=== PATIENT | male | born 1975 | race Caucasian/White ===

== ENCOUNTER 2017-10-12 11:00 | Emergency (ER) | payer SELFPAY ==
[2017-10-12 11:47] VITALS: BP 128/77
--- NOTE | 2017-10-12 11:58 | UC ---
Knee Pain HPI - HPI Summary HPI Summary: 42M presents with left knee pain today. He was walking and slipped and twisted his knee and caught it near a liu at work. He fell on the lateral aspect of his knee. He states that he feels pain greatest over his patella. He denies any numbness or tingling. He denies felling unsteady on his feet. He is able to ambulate but it makes the pain worst. He denies any previous injury to the area. He took some Tylenol prior to arrival. - History of Current Complaint Chief Complaint: UCLowerExtremity Stated Complaint: LEFT KNEE INJURY W/C Time Seen by Provider: 10/12/17 11:47 Pain Intensity: 7 - Allergies/Home Medications Allergies/Adverse Reactions: Allergies Allergy/AdvReac Type Severity Reaction Status Date / Time No Known Allergies Allergy Verified 10/12/17 11:41 Home Medications: Home Medications NK [No Home Medications Reported] 10/12/17 [History Confirmed 10/12/17] PMH/Surg Hx/FS Hx/Imm Hx Endocrine History: Other Other Endocrine History: no DM Respiratory History: Other Other Respiratory History: no asthma - Surgical History Surgical History: None - Family History Known Family History: Positive: Hypertension - Social History Alcohol Use: Occasionally Substance Use Type: None Smoking Status (MU): Current Every Day Smoker Type: Cigarettes Amount Used/How Often: 1 PPD Review of Systems Constitutional: Negative Musculoskeletal: Arthralgia - left knee pain All Other Systems Reviewed And Are Negative: Yes Physical Exam Triage Information Reviewed: Yes Appearance: Well-Appearing Vital Signs: Initial Vital Signs Temp 97.8 F 10/12/17 11:42 Pulse 58 10/12/17 11:42 Resp 16 10/12/17 11:42 BP 128/77 10/12/17 11:42 Pulse Ox 99 10/12/17 11:42 Vital Signs Reviewed: Yes Eye Exam: Normal Respiratory: Positive: Lungs clear, Normal breath sounds Cardiovascular: Positive: RRR Musculoskeletal: Positive: Strength Intact - left knee with pain, ROM Intact - left knee with pain, Other: - pos ballotment, neg anterior drawer or rajinder Neurological Exam: Normal Psychological Exam: Normal Skin Exam: Normal Knee Pain Course/Dx - Course Course Of Treatment: 42M presents with left knee pain today. He was walking and slipped and twisted his knee and caught it near a liu at work. He fell on the lateral aspect of his knee. He states that he feels pain greatest over his patella. He denies any numbness or tingling. He denies felling unsteady on his feet. He is able to ambulate but it makes the pain worst. He denies any previous injury to the area. He took some Tylenol prior to arrival. on exam tenderness over patella left knee. pos ballotment, neg anterior drawer and rajinder. patient states that feels that patella may be sliding laterally so will give knee immbolizer and if no improvement follow up with ortho. will have follow up with primary and follow rice. patient understand and agrees with plan. - Differential Dx/Diagnosis Differential Diagnosis/HQI/PQRI: Contusion, Fracture (Closed), Sprain, Strain Provider Diagnoses: left knee pain Discharge - Discharge Plan Condition: Good Disposition: HOME Patient Education Materials: Knee Pain (ED) Referrals: Non Staff,Doctor [Primary Care Provider] - Boyd Briggs MD [Medical Doctor] - Additional Instructions: Take Tylenol or ibuprofen every 6 hours as needed for pain Apply ice, rest, elevate Follow up with primary care physician within 5 days or if no improvement in 7 days follow up with ortho Return to ED if develop any new or worsening symptoms
--- NOTE | 2017-10-12 12:18 | RAD ---
INDICATION: Left knee injury. TECHNIQUE: 4 views of the left knee were obtained. FINDINGS: There is soft tissue swelling inferior to the patella. The bones are normal alignment. No joint effusion or fracture is seen. Joint spaces appear maintained. IMPRESSION: SOFT TISSUE SWELLING, NO FRACTURE IS SEEN.
== END 2017-10-12 12:43 | disposition home or self-care (01) ==
LOC: UCCORT 11:00
DX: M25.562 Pain in left knee (principal); W01.0XXA Fall on same level from slipping, tripping and stumbling without subsequent striking against object, initial encounter; Y92.9 Unspecified place or not applicable
CPT/HCPCS: 99202; G0463

== ENCOUNTER 2018-06-04 11:23 | Emergency (ER) | payer OTHER ==
--- NOTE | 2018-06-04 11:46 | ED ---
Lower Extremity - HPI Summary HPI Summary: This patient is a 43 year old M presenting to [facility] with a chief complaint of R ankle pain after falling off a walk board in a stairwell roughly 15th off the ground. onto right ankle prior to arrival. Patient has no other complaints at this time. Denies chest pain and abdominal pain. R ankle pain is rated 10/10 in severity. - History of Current Complaint Chief Complaint: EDTraumaMultiple Stated Complaint: RT ANKLE INJURY Time Seen by Provider: 06/04/18 11:30 Hx Obtained From: Patient Mechanism Of Injury: Fall From Height Of: - 15th Onset of Pain: Immediate Severity Initially: Severe Severity Currently: Severe Pain Intensity: 10 Pain Scale Used: 0-10 Numeric Timing: Constant Location: Is Discrete @ - r ankle Related History: Occupational Injury - Allergies/Home Medications Allergies/Adverse Reactions: Allergies Allergy/AdvReac Type Severity Reaction Status Date / Time No Known Allergies Allergy Verified 11/23/17 12:26 PMH/Surg Hx/FS Hx/Imm Hx Endocrine/Hematology History: Denies: Hx Diabetes Cardiovascular History: Denies: Hx Hypertension, Hx Pacemaker/ICD History: Denies: Hx Renal Disease Sensory History: Denies: Hx Hearing Aid Psychiatric History: Denies: Hx Panic Disorder - Surgical History Surgery Procedure, Year, and Place: Lt ANKLE - BONE SPUR Infectious Disease History: No Infectious Disease History: Denies: Traveled Outside the [place] in Last 30 Days - Family History Known Family History: Positive: Hypertension - Social History Alcohol Use: Occasionally Substance Use Type: Reports: None Smoking Status (MU): Current Every Day Smoker Type: Cigarettes Amount Used/How Often: 1 PPD Review of Systems Negative: Chest Pain Negative: Abdominal Pain Positive: Myalgia - R ankle All Other Systems Reviewed And Are Negative: Yes Physical Exam - Summary Physical Exam Summary: Appearance: The patient is well-nourished in no acute distress and in no acute pain. Skin: The skin is warm and dry and skin color reflects adequate perfusion. HEENT: The head is normocephalic and atraumatic. The pupils are equal and reactive. The conjunctivae are clear and without drainage. Nares are patent and without drainage. Mouth reveals moist mucous membranes and the throat is without erythema and exudate. The external ears are intact. The ear canals are patent and without drainage. The tympanic membranes are intact. Neck: The neck is supple with full range of motion and non-tender. There are no carotid bruits. There is no neck vein distension. Respiratory: Chest is non-tender. Lungs are clear to auscultation and breath sounds are symmetrical and equal. Cardiovascular: Heart is regular rate and rhythm. There is no murmur or rub auscultated. There is no peripheral edema and pulses are symmetrical and equal. Abdomen: The abdomen is soft and non-tender. There are normal bowel sounds heard in all four quadrants and there is no organomegaly palpated. Musculoskeletal: There is no back tenderness noted. Extremities are non-tender with full range of motion, except Right heel and ankle are swollen and tender There are good dorsalis pedis and posterior tibial pulses of the right foot There is good capillary refill. There is no peripheral edema or calf tenderness elicited. Neurological: Patient is alert and oriented to person, place and time. The patient has symmetrical motor strength in all four extremities. Cranial nerves are grossly intact. Deep tendon reflexes are symmetrical and equal in all four extremities. Psychiatric: The patient has an appropriate affect and does not exhibit any anxiety or depression. Triage Information Reviewed: Yes Vital Signs On Initial Exam: Initial Vitals Temp Pulse Resp BP Pulse Ox 98.2 F 74 18 128/76 98 06/04/18 11:24 06/04/18 11:24 06/04/18 11:24 06/04/18 11:24 06/04/18 11:24 Vital Signs Reviewed: Yes Diagnostics - Vital Signs Vital Signs Temp Pulse Resp BP Pulse Ox 06/04/18 11:24 98.2 F 74 18 128/76 98 - Laboratory Lab Statement: Any lab studies that have been ordered have been reviewed, and results considered in the medical decision making process. - Radiology R Ankle XR Radiology Interpretation Completed By: Radiologist - Degenerative changes of the tibial talar joint. No definite fracture is noted. ED physician has reviewed this report. - CT RLE CT CT Interpretation Completed By: Radiologist - 1. SEVERELY COMMINUTED, DISPLACED , INTRA-ARTICULAR FRACTURE INVOLVING THE ANTERIOR AND MIDPORTION OF THE CALCANEUS WITH LOSS OF HEIGHT OF THE CALCANEUS. 2. NONDISPLACED FRACTURE OF THE DISTAL FIBULA. 3. CHRONIC OSTEOCHONDRAL LESION MEDIAL ARTICULAR SURFACE OF THE TALUS. 4. MODERATE OSTEOARTHRITIC CHANGE IN THE TALOCRURAL JOINT. ED Physician has reviewed this Lower Extremity Course/Dx - Course Course Of Treatment: Mr. Anthony had a long fall possibly up to 15 feet landing on his feet and then falling onto his right side. He comes in complaining only of pain in his right ankle and specifically denying low back pain or neck pain. His exam was unremarkable except for very tender right foot and ankle which gradually swelled during his stay here. Plain film showed a calcaneal fracture that looked pretty bad and Dr. Mcdaniel for was contacted for orthopedics. He recommended a big bulky dressing and crutches and close follow-up in the office this week. He requested a CT be obtained prior to discharge. - Diagnoses Provider Diagnoses: Right calcaneal fracture - Physician Notifications Discussed Care Of Patient With: Sidney Mcdaniel - orthopedist Time Discussed With Above Provider: 12:35 Instructed by Provider To: Other - will order CT of foot and see on outpatient basis Discharge - Sign-Out/Discharge Documenting (check all that apply): Patient Departure - discharged - Discharge Plan Condition: Stable Disposition: HOME Prescriptions: oxyCODONE/Acetamin 5/325 MG* [Percocet 5/325 TAB*] 1 tab PO Q6H PRN #20 tab MDD 4 PRN Reason: Pain Patient Education Materials: Calcaneal Fracture (ED) Referrals: [facility] [place] PHYSICIAN REFERRAL [Outside] Sidney Mcdaniel MD [Medical Doctor] - 1 Week (Follow up with orthopedics this week. ) Additional Instructions: RETURN TO THE EMERGENCY DEPARTMENT FOR CHANGING OR WORSENING SYMPTOMS. - Billing Disposition and Condition Condition: STABLE Disposition: Home - Attestation Statements Document Initiated by Scribe: Yes Documenting Scribe: Vane Pope Provider For Whom Timmye is Documenting (Include Credential): Doc Thakkar MD Scribe Attestation: Vane Pacheco, scribed for Doc Thakkar MD on 06/04/18 at 1634. Scribe Documentation Reviewed: Yes Provider Attestation: The documentation as recorded by the scribeVane accurately reflects the service I personally performed and the decisions made by me, Doc Thakkar MD
[2018-06-04] MEDS ORDERED: Ibuprofen TAB* 600 MG PO ONE (11:49)
--- NOTE | 2018-06-04 11:55 | RAD ---
Indication: Right ankle injury. 3 views of the right ankle are reviewed. No definite fracture is noted although there are degenerative changes of the tibial talar joint. IMPRESSION: Degenerative changes of the tibial talar joint. No definite fracture is noted.
--- NOTE | 2018-06-04 13:42 | RAD ---
INDICATION: Trauma. COMPARISON: Comparison is made with a prior x-ray study of the right ankle from June 04, 2018. TECHNIQUE: Contiguous axial sections were obtained of the right ankle. Images were reconstructed in the sagittal and coronal planes. FINDINGS: There is lateral soft tissue swelling. There is a severely comminuted fracture present in the anterior and midportion of the calcaneus. There is impaction and displacement of fracture fragments and loss of height in the anterior midportion of the calcaneus. Several fracture components extend to the subtalar joint and also to the calcaneal cuboid joint. There is a nondisplaced fracture involving the inferior lateral tip of the fibula There is a bony ossicle or chronic fracture fragment adjacent to the posterior talus. There is a prominent chronic osteochondral lesion present along the medial superior articular surface of the talus measuring 1.3 x 0.6 cm in size with depression of the articular surface of the talus and prominent subchondral cystic change. There is moderate osteoarthritic change in the talocrural joint. IMPRESSION: 1. SEVERELY COMMINUTED, DISPLACED, INTRA-ARTICULAR FRACTURE INVOLVING THE ANTERIOR AND MIDPORTION OF THE CALCANEUS WITH LOSS OF HEIGHT OF THE CALCANEUS. 2. NONDISPLACED FRACTURE OF THE DISTAL FIBULA. 3. CHRONIC OSTEOCHONDRAL LESION MEDIAL ARTICULAR SURFACE OF THE TALUS. 4. MODERATE OSTEOARTHRITIC CHANGE IN THE TALOCRURAL JOINT.
[2018-06-04] MEDS ORDERED: oxyCODONE/Acetamin 5/325 MG* TAB PO ONE (15:05)
[2018-06-04] MEDS ORDERED: oxyCODONE/Acetamin 5/325 MG* TAB ONE (15:07)
[2018-06-04 15:13] VITALS: BP 139/73
== END 2018-06-04 15:12 | disposition home or self-care (01) ==
LOC: ED 11:23
DX: S92.001A Unspecified fracture of right calcaneus, initial encounter for closed fracture (principal); S82.831A Other fracture of upper and lower end of right fibula, initial encounter for closed fracture; W17.89XA Other fall from one level to another, initial encounter; Y92.9 Unspecified place or not applicable; M89.9 Disorder of bone, unspecified; M19.071 Primary osteoarthritis, right ankle and foot; F17.210 Nicotine dependence, cigarettes, uncomplicated
CPT/HCPCS: 99282; A9270-GY

== ENCOUNTER → 2018-06-13 08:35 | Day surgery (SDC) | payer OTHER ==
[~2018-06-13 08:35] MED LIST: Buffered Lidocaine 0.9% SYRIN* 5 ML/SYR SYRINGE INTRADERM ONE; Bupivacaine 0.25% SDV* 30 ML ONE; Bupivacaine 0.5% SDV PF* 30ML VIAL ONE; Dexamethasone IV* 4 MG/ML 1 ML (4 MG) IV SLOW PU ONE; Dexamethasone IV* 4 MG/ML 1 ML (4 MG) ONE; Famotidine IV* 10 MG/ML 2 ML (20 mg) IV ONE; Famotidine IV* 10 MG/ML 2 ML (20 mg) ONE; ceFAZolin 2 GM in NS PREMIX(*) 2 GM/100 ML BAG IVPB ONE
[2018-06-13 09:25] VITALS: BP 130/77
== END | disposition home or self-care (01) ==
LOC: OR 08:35
PROVIDERS: ATTEND Orthopaedic Surgery
DX: S92.061A Displaced intraarticular fracture of right calcaneus, initial encounter for closed fracture (principal); Z53.9 Procedure and treatment not carried out, unspecified reason; Z72.0 Tobacco use; W19.XXXA Unspecified fall, initial encounter; Y93.H3 Activity, building and construction; Y92.89 Other specified places as the place of occurrence of the external cause; Y99.0 Civilian activity done for income or pay
CPT/HCPCS: J0690; J1100

== ENCOUNTER 2018-06-18 09:23 | Inpatient (IN) | payer OTHER ==
--- OUTSIDE RECORDS SUMMARY | 2018-06-18 09:28 | XMS REPORT ---
:1975 External Reference #:[id number] Author Organization [employer] Address [address] [place] [address] [place] [address] Phone [phone] Care Team Providers Name Role Phone Patient's Choice Primary Care Physician Unavailable Payers Type Date Identification Numbers Payment Provider Subscriber Workers Compensation Effective: Policy Number: Guard Insurance Matt Anthony 2018 [id number] Onset: 2018 Group Name: [address] PayID: [id number] JIA Still [id number] Problems Date Description Provider Status Onset: 06/05/2018 Closed fracture of calcaneus Yahir Ventura MD Active Family History Date Family Member(s) Problem(s) Comments General Diabetes Social History Type Date Description Comments 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 ETOH Use Denies alcohol use Smoking Patient is a current smoker, smokes every day Exercise Type/Frequency Exercises regularly Allergies, Adverse Reactions, Alerts Date Description Reaction Status Severity Comments 06/05/2018 NKDA active Medications Medication Date Status Form Strength Qnty SIG Indications Ordering Provider Doxycycline Active Capsules 100mg 14caps 1 tab po Yahir Monohydrate 018 bid MD Lorenzo Celebrex Active Capsules 200mg 30caps 1 by mouth Yahir 018 every day MD Lorenzo Keflex Active Capsules 500mg 20caps 1 tab by Yahir 018 mouth four Lorenzo, times a MD day Knee Scooter Active 1units Disp 1 S92.061A Zaneb 018 knee MD Chang scooter Oxycodone HCL Active Tablets 5mg 20tabs 1 tabs by Yahir 000 mouth Lorenzo, every 4-6 MD hours as needed Vital Signs Date Vital Result Comment 06/17/2018 Height 72 inches 6'0" Weight 182.00 lb Heart Rate 88 /min Respiratory Rate 16 /min Body Temperature 96.5 F Pain Level 5 BMI (Body Mass Index) 24.7 kg/m2 06/11/2018 Height 72 inches 6'0" Weight 182.00 lb Heart Rate 76 /min BP Systolic 148 mmHg BP Diastolic 82 mmHg Body Temperature 98.3 F Pain Level 8 BMI (Body Mass Index) 24.7 kg/m2 06/05/2018 Height 72 inches 6'0" Weight 182.00 lb Heart Rate 64 /min Respiratory Rate 16 /min Body Temperature 99.1 F Pain Level 9 BMI (Body Mass Index) 24.7 kg/m2 Results Description No Information Procedures Date CPT Code Description Status 06/05/2018 45215 application of short leg splint Completed Encounters Type Date Location Provider CPT E/M Dx Office Visit 06/05/2018 [place] [id number] W17.89xA 1:30p Of [facility].A. S92.061A S92.061A Plan of Care Future Appointment(s):06/20/2018 8:45 am [facility] 8:45 am - [facility]06/28/2018 11:30 am - [facility]06/17/2018 - Yahir Ventura MDS92.061G Displaced intartic fx r calcaneus, subs for fx w delay healFollow up:Follow Up: To hospital tomorrow morning for admission
--- OUTSIDE RECORDS SUMMARY | 2018-06-18 09:28 | XMS REPORT ---
:1975 External Reference #:[id number] Author Organization [employer] Address [address] [place] [address] [place] [address] Phone [phone] Care Team Providers Name Role Phone Patient's Choice Primary Care Physician Unavailable Payers Type Date Identification Numbers Payment Provider Subscriber Workers Compensation Effective: Policy Number: Guard Insurance Matt Anthony 2018 [id number] Onset: 2018 Group Name: [address] PayID: [id number] JIA Still [id number] Problems Date Description Provider Status Onset: 06/05/2018 [...] Form Strength Qnty SIG Indications Ordering Provider Celebrex Active Capsules 200mg 30caps 1 by mouth Yahir 018 every day MD Lorenzo Keflex Active Capsules 500mg 20caps 1 tab by Yahirisiah Cantu mouth four Lorenzo, times a MD day Knee Scooter Active 1units Disp 1 S92.061A Zaneb 018 knee MD Chang scooter Oxycodone HCL Active Tablets 5mg 1 tabs by Unknown 000 mouth every 4-6 hours as needed Vital Signs Date Vital Result Comment 06/11/2018 Height 72 inches 6'0" Weight 182.00 [...] Procedures Date CPT Code Description Status 06/05/2018 75020 application of short leg splint Completed Plan of Care Future Appointment(s):06/13/2018 10:00 am [facility]2018 10:00 am - Yahir Ventura MD at [facility].06/28/2018 11:30 am - [facility]
[2018-06-18] MEDS ORDERED: oxyCODONE/Acetamin 5/325 MG* TAB PO PRN ×2 (10:26→12:05)
[2018-06-18] MEDS ORDERED: diPHENhydraMINE IV* 50 MG/ML 1 ml VIAL (BENADRYL) IV PRN (10:27)
[2018-06-18] MEDS ORDERED: Acetaminophen TAB* 325 MG PO PRN (10:27)
[2018-06-18] MEDS ORDERED: Ondansetron INJ* 2 MG/ML VIAL IV PRN (10:27)
[2018-06-18] MEDS ORDERED: Vancomycin per Pharmacy* NOTE FOLLOW UP PRN (10:39)
[2018-06-18] MEDS ORDERED: Vancomycin 1500 MG IV - x ONCE IVPB ONE ×2 (11:00)
[2018-06-18] MEDS ORDERED: Nicotine Inhaler* 10 MG AMP INH PRN (11:58)
[2018-06-18] MEDS ORDERED: Mouth Piece, Nicotine* 1 EACH CARTRIDGE INH PRN (11:58)
[2018-06-18] MEDS: Nicotine PATCH 14 MG/24 HR* PATCH TRANSDERM SCH (13:33)
[2018-06-18 13:53] LABS: ABS Basophils 0.1 10^3/ul (0-0.2); ABS Eosinophils 0.3 10^3/ul (0-0.6); ABS Lymphocytes 3.4 10^3/ul (1.0-4.8); ABS Monocytes 0.5 10^3/ul (0-0.8); ABS Neutrophils 4.7 10^3/ul (1.5-7.7); ABS Nucleated RBC 0 10^3/ul; Eosinophil % 2.9 % (0-6); Hematocrit 45 % (42-52); Hemoglobin 15.6 g/dl (14.0-18.0); Mean Corpuscular HGB Conc 35 g/dl (31-36); Mean Corpuscular Hemoglobin 31 pg (27-31); Mean Corpuscular Volume 91 fL (80-94); Mean Platelet Volume 8.1 um3 (7.4-10.4); Nucleated Red Blood Cells % 0; Platelet Count 405 10^3/ul (150-450); Red Blood Count 4.96 10^6/ul (4.00-5.40); Red Cell Distribution Width 14 % (10.5-15); White Blood Count 8.9 10^3/ul (3.5-10.8)
[2018-06-18 14:12] LABS: EGFR Non-African American 126.4 (>60)
[2018-06-18] MEDS: Cetirizine* 10 MG TAB PO SCH (20:12)
[2018-06-18] MEDS: Vancomycin(*) 1,250 MG in NS 0.9% 250 ML* 250 ML IVPB SCH (20:12)
[2018-06-18] MEDS: oxyCODONE/Acetamin 5/325 MG* TAB PO PRN (20:12)
[2018-06-18] MEDS: Heparin VIAL(*) 5000 UNITS/ML VIAL (FIVE THOUSAND) SUBCUT SCH (20:14)
[2018-06-18] MEDS: Nicotine Patch Removal NOTE FOLLOW UP SCH (20:18)
--- NOTE | 2018-06-18 21:31 | CONS ---
CONSULTATION REPORT: DATE OF CONSULT: 06/18/18 REQUESTING PHYSICIAN: Dr. Ventura. CONSULTING SERVICE: Infectious Disease. REASON FOR CONSULTATION: Right foot infection. IMPRESSION: 1. Right foot cellulitis after a calcaneus fracture, which has been slow to improve on oral antibiotics. There are no signs or symptoms to suggest a deeper infection at this point. Systemically, he has been well. 2. Right calcaneus fracture. 3. Tobacco abuse. RECOMMENDATIONS: Vancomycin goal trough 10 to 15. I will follow his foot exam leading up to his surgery on . I will add a C-reactive protein. HISTORY OF PRESENT ILLNESS: This is a 43-year-old man, who fractured his right calcaneus a couple of weeks ago. He was casted and then when the cast was taken off before a planned outpatient fixation surgery, there was some erythema and swelling, but worsening pain up to the dorsum of his forefoot. He was started on oral antibiotics as an outpatient, but continued to have erythema that spread outside an outlined area. He otherwise felt well. He was tolerating doxycycline and Keflex. He is admitted today for IV antibiotics. He has not had allergic reactions to antibiotics in the past. PAST MEDICAL HISTORY: Tobacco abuse. MEDICATIONS: 1. Tylenol. 2. Zyrtec. 3. Heparin subcutaneous injection. 4. Nicotine inhaler. 5. Nicotine patch. 6. Percocet as needed. 7. Vancomycin 1250 mg every 8 hours. SOCIAL HISTORY: He lives in [place] with girlfriend and daughter. No travel. No sick contacts. He smokes cigarettes. FAMILY HISTORY: No recurrent infections. REVIEW OF SYSTEMS: All negative except as noted above in the history of present illness. PHYSICAL EXAM: Vital Signs: Temperature is 37.1, heart rate 60, respiratory rate 16, blood pressure 138/70, oxygen saturation 100% on room air. General: He is awake, not in distress. Neurologic: He is oriented x3, follows all commands. HEENT: There is no conjunctival hemorrhage. Oropharynx, no lesions. Heart: Regular rate and rhythm without murmurs, rubs or gallops. Lungs are clear to auscultation bilaterally. Abdomen: Soft, nontender, and nondistended. There are bowel sounds present. Skin: There is no rash or splinter hemorrhage. Musculoskeletal: Right foot, there is diffuse edema and some ecchymosis on the 2nd and 3rd toes. There is erythema on the dorsum of the foot from midfoot to forefoot. No fluctuance or crepitus. DIAGNOSTIC STUDIES/LAB DATA: Pending. Please see impressions and recommendations outlined above, which I have discussed with JIA Harris. Thank you for asking me to see Mr. Anthony in consultation. [id number]/[facility] #: [id number] MTDD
[2018-06-19] MEDS: Vancomycin(*) 1,250 MG in NS 0.9% 250 ML* 250 ML IVPB SCH ×3 (03:41→20:06)
[2018-06-19] MEDS: oxyCODONE/Acetamin 5/325 MG* TAB PO PRN ×5 (03:41→21:04)
--- NOTE | 2018-06-19 03:41 | HP ---
HISTORY AND PHYSICAL: DATE OF ADMISSION: 06/18/18 ATTENDING PROVIDER: Dr. 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 On 06/04/18, a walking board collapsed in a stairwell and he fell 10 to 12 feet onto his right heel. He sustained a comminuted and displaced right calcaneus fracture. He has been seen by Dr. Ventura in the office a couple of times and he developed cellulitis of the lower extremity. He initially refused to go to the hospital for IV antibiotics, but at his last visit on 06/17/18, he stated that he would like to go to the hospital for IV antibiotics on 06/18/18 and possibly undergo a calcaneus ORIF on 06/20/18 should his cellulitis clear up. The patient has been taking doxycycline and Keflex for antibiotics at this point , which have not been working. He denies any numbness or tingling. No other joint pain. He denies fevers, chills, or night sweats. PAST MEDICAL HISTORY: Denies any medical problems. PAST SURGICAL HISTORY: None. MEDICATIONS: Oxycodone 5 mg 1 tab by mouth every 4 to 6 hours as needed for pain. ALLERGIES: No known drug allergies. Does admit to seasonal allergies. FAMILY HISTORY: No history of venous thromboembolic disease. Does admit to a history of diabetes. SOCIAL HISTORY: The patient smokes 2 packs a day. Denies any drinking or illicit drug use. REVIEW OF SYSTEMS: General: Denies any fevers, chills, or night sweats. No known anesthesia problems. HEENT: Denies any headaches, lightheadedness, or syncopal episodes. Cardiothoracic: Denies any chest pain, heart palpitations. Pulmonary: Denies any shortness of breath with exertion, chronic cough. GI: Denies any nausea, vomiting, or diarrhea. He admits to some mild constipation. : Denies any nocturia, urinary frequency, or urgency. MSK: Denies any chronic or intermittent back pain or fractures. Neuro: The patient denies any numbness, paresthesias, or seizures. Integument: Denies any abrasions, lesions, rashes, lumps, or open sores. PHYSICAL EXAMINATION GENERAL: The patient is alert and oriented x3 with appropriate mood and affect , appropriate dress and hygiene, no acute distress. HEENT: Normocephalic, atraumatic. Hearing and vision are grossly intact. PULMONARY: Lungs are clear to auscultation bilaterally with no wheezes, rales, or rhonchi. CARDIO: Regular rate and rhythm. Normal S1 and S2. No appreciable S3 or S4. No murmurs, rubs, or gallops. MUSCULOSKELETAL: Right lower extremity: Inspection of the right lower extremity reveals severe erythema present on the lateral aspect of his foot from his lateral malleolus to his toes just at the MTP joints. The area of redness encompasses just under the second digit to the fifth digit. He has tenderness to light touch along the entirety of the area of erythema. He is able to wiggle his toes. He has a 2+ dorsalis pedis pulse. He has sensation intact to light touch. Ankle range of motion is full and painless. He has some bruising on the plantar aspect of his foot. No erythema present there. No tenderness to palpation proximally along the tibia. IMPRESSION: 1. Right foot calcaneal fracture. 2. Right foot cellulitis. PLAN: 1. The patient was admitted to [facility] on 06/18/18 for IV antibiotics. Vancomycin 1500 mg loading dose started followed by vancomycin per pharmacy with a trough of 10 to 15. 2. The patient will be reevaluated for possibility of being taken to the OR by Dr. Yahir Ventura for an ORIF of the right calcaneal fracture. Should the patient's cellulitis continue to be a problem, we will hold off and continue with IV antibiotics at that point. 3. N.p.o. after midnight on Sunday for morning. JIA KNIGHT [id number]/[facility] #: [id number] ALEIDA
[2018-06-19 07:16] LABS: INR 0.94 (0.77-1.02)
[2018-06-19] MEDS: Nicotine PATCH 14 MG/24 HR* PATCH TRANSDERM SCH (07:52)
[2018-06-19] MEDS: Heparin VIAL(*) 5000 UNITS/ML VIAL (FIVE THOUSAND) SUBCUT SCH ×2 (10:23→20:12)
--- NOTE | 2018-06-19 12:24 | PN ---
Progress Note - Progress Note Date of Service: 06/19/18 SOAP: Subjective: []Patient was seen and examined at bedside. He reports a significant decrease in redness, swelling and pain of his RLE [place] [facility] [place] Denies any feeling of fever or chills. Objective: []General: Well appearing, NAD RLE: mild erythema of lateral and dorsal aspect of right foot, remains inside of demarcated lines and much improved from previous exams. No streaking proximally. Lateral ankle tender to palpation, minimally tender dorsum. Sensation intact to light touch, able to wiggle toes, cap refill less than two seconds, DP 2+. Calves supple and nontender without erythema, edema or palpable cords Assessment: []Right foot calcaneus fracture, right foot cellulitis improving Plan: [] Continue IV vancomycin Ice and elevation of RLE NPO and hold heparin after midnight tonight for likely ORIF right calcaneal fracture with Dr. Ventura 06/20 If cellulitis is not adequately resolved 10 AM will postpone OR and continue with IV antibiotics. Vital Signs Temp 98.7 F 06/19/18 11:24 Pulse 57 06/19/18 11:24 Resp 18 06/19/18 12:02 BP 120/60 06/19/18 11:24 Pulse Ox 97 06/19/18 11:24 Intake & Output 06/18/18 06/19/18 06/19/18 18:59 06:59 18:59 Intake Total 1705 290 Output Total 450 800 Balance -450 905 290 Weight 185 lb Intake: IV Fluids 285 290 ABX - VANCOMYCIN 265 270 NS (0.9%) 20 20 IVPB 270 ABX - VANCOMYCIN 270 Oral 1150 Output: Urine 450 800 Other: # Bowel Movements 0 Laboratory Last Values WBC 11.7 10^3/ul (3.5-10.8) H 06/19/18 13:31 RBC 4.61 10^6/ul (4.00-5.40) 06/19/18 13:31 Hgb 14.3 g/dl (14.0-18.0) 06/19/18 13:31 Hct 41 % (42-52) L 06/19/18 13:31 MCV 90 fL (80-94) 06/19/18 13:31 MCH 31 pg (27-31) 06/19/18 13:31 MCHC 35 g/dl (31-36) 06/19/18 13:31 RDW 14 % (10.5-15) 06/19/18 13:31 Plt Count 356 10^3/ul (150-450) 06/19/18 13:31 MPV 7.5 um3 (7.4-10.4) 06/19/18 13:31 Neut % (Auto) 59.6 % (38-83) 06/19/18 13:31 Lymph % (Auto) 30.2 % (25-47) 06/19/18 13:31 Crockett % (Auto) 6.1 % (0-7) 06/19/18 13:31 Eos % (Auto) 2.9 % (0-6) 06/19/18 13:31 Baso % (Auto) 1.2 % (0-2) 06/19/18 13:31 Absolute Neuts (auto) 7.0 10^3/ul (1.5-7.7) 06/19/18 13:31 Absolute Lymphs (auto) 3.5 10^3/ul (1.0-4.8) 06/19/18 13:31 Absolute Monos (auto) 0.7 10^3/ul (0-0.8) 06/19/18 13:31 Absolute Eos (auto) 0.3 10^3/ul (0-0.6) 06/19/18 13:31 Absolute Basos (auto) 0.1 10^3/ul (0-0.2) 06/19/18 13:31 Absolute Nucleated RBC 0 10^3/ul 06/19/18 13:31 Nucleated RBC % 0.1 06/19/18 13:31 INR (Anticoag Therapy) 0.94 (0.77-1.02) 06/19/18 06:56 APTT 30.8 seconds (26.0-36.3) 06/19/18 06:56 BUN 12 mg/dL (6-24) 06/18/18 10:15 Creatinine 0.69 mg/dL (0.67-1.17) 06/18/18 10:15 Est GFR ( Amer) 152.9 (>60) 06/18/18 10:15 Est GFR (Non-Af Amer) 126.4 (>60) 06/18/18 10:15 C-Reactive Protein 7.65 mg/L (<8.01) 06/18/18 10:15
[2018-06-19] MEDS ORDERED: Buffered Lidocaine 0.9% SYRIN* 5 ML/SYR SYRINGE INTRADERM ONE (13:16)
[2018-06-19 13:43] LABS: ABS Basophils 0.1 10^3/ul (0-0.2); ABS Eosinophils 0.3 10^3/ul (0-0.6); ABS Lymphocytes 3.5 10^3/ul (1.0-4.8); ABS Monocytes 0.7 10^3/ul (0-0.8); ABS Nucleated RBC 0 10^3/ul; Eosinophil % 2.9 % (0-6); Hematocrit 41 % (42-52); Hemoglobin 14.3 g/dl (14.0-18.0); Lymphocyte % 30.2 % (25-47); Mean Corpuscular HGB Conc 35 g/dl (31-36); Mean Corpuscular Hemoglobin 31 pg (27-31); Mean Corpuscular Volume 90 fL (80-94); Mean Platelet Volume 7.5 um3 (7.4-10.4); Nucleated Red Blood Cells % 0.1; Platelet Count 356 10^3/ul (150-450); Red Blood Count 4.61 10^6/ul (4.00-5.40); Red Cell Distribution Width 14 % (10.5-15); White Blood Count 11.7 10^3/ul (3.5-10.8)
[2018-06-19] MEDS ORDERED: Bisacodyl SUPP* 10 MG SUPP PR PRN (16:09)
[2018-06-19] MEDS ORDERED: Magnesium Hydroxide LIQ* 30 ML UDC PO PRN (16:09)
[2018-06-19] MEDS ORDERED: Senna TAB PO PRN (16:09)
[2018-06-19] MEDS ORDERED: NS 0.9% 250 ML* 250 ML ONE (20:01)
[2018-06-19] MEDS: Cetirizine* 10 MG TAB PO SCH (20:11)
[2018-06-19] MEDS: Docusate CAP* 100 MG PO SCH (20:11)
[2018-06-19] MEDS: Nicotine Patch Removal NOTE FOLLOW UP SCH (23:42)
[2018-06-20] MEDS: oxyCODONE/Acetamin 5/325 MG* TAB PO PRN (04:05)
[2018-06-20] MEDS: Vancomycin(*) 1,250 MG in NS 0.9% 250 ML* 250 ML IVPB SCH ×2 (04:06→14:54)
[2018-06-20 06:02] LABS: ABS Basophils 0.1 10^3/ul (0-0.2); ABS Eosinophils 0.3 10^3/ul (0-0.6); ABS Lymphocytes 2.6 10^3/ul (1.0-4.8); ABS Monocytes 0.9 10^3/ul (0-0.8); ABS Neutrophils 5.6 10^3/ul (1.5-7.7); ABS Nucleated RBC 0 10^3/ul; Eosinophil % 3.1 % (0-6); Hematocrit 41 % (42-52); Hemoglobin 14.2 g/dl (14.0-18.0); Lymphocyte % 27.5 % (25-47); Mean Corpuscular HGB Conc 34 g/dl (31-36); Mean Corpuscular Hemoglobin 31 pg (27-31); Mean Corpuscular Volume 90 fL (80-94); Mean Platelet Volume 7.4 um3 (7.4-10.4); Nucleated Red Blood Cells % 0; Platelet Count 354 10^3/ul (150-450); Red Blood Count 4.57 10^6/ul (4.00-5.40); Red Cell Distribution Width 13 % (10.5-15); White Blood Count 9.6 10^3/ul (3.5-10.8)
[2018-06-20 06:09] LABS: INR 0.91 (0.77-1.02)
[2018-06-20 07:05] LABS: EGFR Non-African American 122.3 (>60)
[2018-06-20] MEDS: Docusate CAP* 100 MG PO SCH (07:07)
[2018-06-20] MEDS: Nicotine PATCH 14 MG/24 HR* PATCH TRANSDERM SCH (07:40)
[2018-06-20] MEDS ORDERED: Morphine INJ* 4 MG/ML 1 ML SYRINGE (NEW SYRINGE VERSION) IV PRN (08:41)
--- NOTE | 2018-06-20 08:45 | PN ---
Progress Note - Progress Note Date of Service: 06/20/18 SOAP: Subjective: 43 y.o male with R calcaneus fracture, cellulitis. NPO for ORIF today. Patient without questions, eager for D/C home. Objective: GEneral- Well appearing, NAD, AO, resting in bed comfortably MSK- Boot on R leg, SITLT R toes, cap refill <2 seconds, + movement of toes. Vital Signs Temp 98.3 F 06/20/18 07:21 Pulse 57 06/20/18 07:21 Resp 20 06/20/18 10:28 BP 108/60 06/20/18 07:21 Pulse Ox 97 06/20/18 07:21 Intake & Output 06/19/18 06/20/18 06/20/18 18:59 06:59 18:59 Intake Total 410 1090 438 Output Total 600 275 600 Balance -190 815 -162 Intake: IV Fluids 290 290 438 ABX - VANCOMYCIN 270 290 LR 438 NS (0.9%) 20 Oral 120 800 Output: Urine 600 275 600 Other: Date of Last Bowel 06/19/2018 Movement # Bowel Movements 1 Estimated Stool Amount Medium Assessment: Stable 43 y.o male with R calcaneus fracture, cellulitis. Plan: - Cellulitis- ID Jeremy managing, IV vanco - OR today for ORIF with Lorenzo - PT post-op Acetaminophen (Tylenol Tab*) 650 mg PO Q6H PRN PRN Reason: PAIN OR TEMPERATURE Bisacodyl (Dulcolax Supp*) 10 mg IA DAILY PRN PRN Reason: CONSTIPATION Cetirizine HCl (Zyrtec*) 10 mg PO 2100 [facility] Last Admin: 06/19/18 20:11 Dose: 10 mg Device (Nicotine Mouth Piece*) 1 each INH .USE WITH NICOTROL PRN PRN Reason: CRAVING Last Admin: 06/18/18 13:55 Dose: 1 each Diphenhydramine HCl (Benadryl Iv*) 25 mg IV Q6H PRN PRN Reason: PRURITIS Docusate Sodium (Colace Cap*) 100 mg PO BID [facility] Last Admin: 06/20/18 07:07 Dose: Not Given Vancomycin HCl 1,250 mg/ (Sodium Chloride) 250 mls @ 166.667 mls/hr IVPB Q8H [facility] Last Admin: 06/20/18 04:06 Dose: 166.667 mls/hr Lactated Ringer's (Lactated Ringers 1000 Ml Bag*) 1,000 mls @ 125 mls/hr IV PER RATE [facility] Last Admin: 06/20/18 06:49 Dose: 125 mls/hr Lactulose (Lactulose*) 30 ml PO DAILY PRN PRN Reason: CONSTIPATION Last Admin: 06/19/18 16:32 Dose: 30 ml Magnesium Hydroxide (Milk Of Magnesia Liq*) 30 ml PO BID PRN PRN Reason: CONSTIPATION Morphine Sulfate (Morphine Inj (Syringe)*) 2 mg IV Q2H PRN PRN Reason: PAIN Nicotine (Nicotine Inhaler*) 10 mg INH Q2H PRN PRN Reason: CRAVING Last Admin: 06/18/18 13:55 Dose: 10 mg Nicotine (Nicotine Patch 14 Mg/24 Hr*) 1 patch TRANSDERM DAILY [facility] Last Admin: 06/20/18 07:40 Dose: Not Given Ondansetron HCl (Zofran Inj*) 4 mg IV Q6H PRN PRN Reason: NAUSEA Oxycodone/Acetaminophen (Percocet 5/325 Tab*) 2 tab PO Q4H PRN PRN Reason: Pain - at night before bed Last Admin: 06/20/18 04:05 Dose: 2 tab Oxycodone/Acetaminophen (Percocet 5/325 Tab*) 1 tab PO Q4H PRN PRN Reason: PAIN Last Admin: 06/18/18 15:15 Dose: 1 tab Pharmacy Consult (Vancomycin Per Pharmacy*) 1 note FOLLOW UP . PRN PRN Reason: PER PROTOCOL Pharmacy Profile Note (Nicotine Patch Removal Note*) 1 note FOLLOW UP 2100 [facility] Last Admin: 06/19/18 23:42 Dose: Not Given Pharmacy Profile Note (Vancomycin Trough Check) 1 note FOLLOW UP .ENTER TIME ONE Stop: 06/20/18 12:01 Last Admin: 06/20/18 10:28 Dose: 1 note Senna (Senokot Tab*) 1 tab PO BEDTIME PRN PRN Reason: CONSTIPATION Last Admin: 06/19/18 20:11 Dose: 1 tab
[2018-06-20] MEDS ORDERED: Morphine INJ* 4 MG/ML 1 ML SYRINGE (NEW SYRINGE VERSION) ONE (08:46)
[2018-06-20] MEDS ORDERED: Propofol* 10 MG/ML 20 ML BTL IV PUSH ONE (10:30)
[2018-06-20] MEDS ORDERED: Lidocaine 2% PF * 5 ML VIAL ONE ×3 (10:30→12:16)
[2018-06-20] MEDS ORDERED: ROPIVACAINE 5 MG/ML 30 ML BTL (0.5%) ONE (10:31)
[2018-06-20] MEDS ORDERED: Propofol* 500 MG/50 ML BTL ONE (10:31)
[2018-06-20] MEDS ORDERED: KETAMINE HCL* 50 MG/ML 10 ML VIAL ONE (10:33)
[2018-06-20] MEDS ORDERED: fentaNYL* 50 MCG/ML 2 ML VIAL (100 MCG VIAL) ONE (10:33)
[2018-06-20] MEDS ORDERED: Midazolam* 1 MG/ML 2 ML VIAL (2 MG) ONE (10:33)
[2018-06-20] MEDS ORDERED: Bupivacaine 0.5% SDV PF* 30ML VIAL ONE (11:00)
[2018-06-20] MEDS ORDERED: EPINEPHrine SYR 0.1MG/ML* SYRINGE ONE (12:00)
[2018-06-20] MEDS ORDERED: Vancomycin Trough Check NOTE FOLLOW UP ONE (12:00)
[2018-06-20] MEDS ORDERED: Albuterol/Ipratropium NEB.SOL* Albuterol 2.5 MG/Ipratropium 0.5 MG 3 ML INH ONE (12:00)
[2018-06-20] MEDS ORDERED: EPHEDrine (Pressors)* 50 MG/ML VIAL ONE (12:32)
[2018-06-20] MEDS ORDERED: Bupivacaine 0.25% SDV* 30 ML ONE (12:55)
[2018-06-20] MEDS ORDERED: Dexamethasone IV* 4 MG/ML 1 ML (4 MG) ONE (13:04)
[2018-06-20] MEDS ORDERED: HYDROmorphone INJ1* 1 MG/ML SYRINGE IV PRN (14:31)
[2018-06-20] MEDS ORDERED: Naloxone* 0.4 MG/ML 1 ML VIAL IV PRN (14:31)
[2018-06-20] MEDS ORDERED: Ondansetron INJ* 2 MG/ML VIAL IV PRN (14:31)
[2018-06-20] MEDS ORDERED: Ketorolac INJ* 30 MG/ML 1 ML VIAL IV PRN (14:31)
[2018-06-20] MEDS ORDERED: oxyCODONE TAB* 5 MG TAB PO PRN (14:31)
[2018-06-20] MEDS: Acetaminophen IV 1GM/100ML * 1,000 MG/100 ML VIAL IVPB ONE ×2 (14:55→15:28)
[2018-06-20] MEDS ORDERED: Ketorolac INJ* 30 MG/ML 1 ML VIAL ONE (15:26)
[2018-06-20] MEDS ORDERED: Acetaminophen IV 1GM/100ML * 100 ML ONE (15:26)
--- NOTE | 2018-06-20 15:33 | OP ---
Operative Report - Blank - Operative Report Date of Operation: 06/20/18 Note: PATIENT: Matt Anthony DATE OF : 1975 DATE OF SURGERY: 06/20/2018 SURGEON: Yahir Ventura MD END TOUCHING MACHINE OPERATOR: JIA Carmichael, whos assistance was necessary for positioning, retraction, help with instrumentation, and closure. ANESTHESIOLOGIST: Dr. Coyne PREOPERATIVE DIAGNOSIS: Right calcaneus fracture POSTOPERATIVE DIAGNOSIS: Right calcaneus fracture OPERATION: Right calcaneus fracture open reduction and internal fixation. ANESTHESIA: Spinal + regional nerve block IMPLANTS: Arthrex cannulated screws TOURNIQUET TIME: Less than two hours with a well-padded calf tourniquet at 225mmHg SPECIMENS: none ESTIMATED BLOOD LOSS: minimal COMPLICATIONS: none STATUS: Stable from the operating room to the recovery room and then home INDICATIONS FOR PROCEDURE: Matt sustained a displaced right calcaneus fracture. Both operative and non- operative treatment alternatives were reviewed. Further, the nature and risks of surgery were reviewed in careful detail, in the office as well as the pre- operative holding area. Our discussions regarding the risks of surgery included , but were not limited to, infection, wound problems, nerve injury, neuroma, RSD , persistent symptoms, blood clot, loss of fixation and reduction, malunion, nonunion, posttraumatic arthritis, persistent pain, skin breakdown, need for further surgery, failure of the surgery, and even the remote chance of catastrophic complication, including loss of limb. DESCRIPTION OF PROCEDURE: The patient was seen in the preoperative holding unit and informed written consent was obtained. The appropriate extremity was marked. The patient was then brought to the operating room and carefully positioned on the operating room table. Anesthesia was induced. All bony prominences were padded with great care. A chlorhexidine based pre-scrub was performed followed by a chloraprep prep and drape in standard sterile fashion. A surgical safety pause was then conducted in which we confirmed the appropriate patient, extremity, planned procedure, availability of equipment, indication and administration of prophylactic antibiotics, and DVT prophylaxis in the form of a compression boot on the non-surgical extremity. I began by placing a well-padded, sterile calf tourniquet 3 finger breaths distal to the fibular head. I then performed an Esmarch exsanguination of the limb and inflated the tourniquet. I utilized a sinus tarsi incision at the lateral hindfoot. I carefully dissected down to the level of the subtalar joint , making sure to protect the peroneal tendons. I exposed the fractures and used a Sprague to loosen up the fracture fragments. Irrigation was used to remove fracture hematoma. I then reduced the fragments that involved the posterior facet. I placed K wires to hold the reduction. I then placed guidewires for the 3.0 mm cannulated screws. The placement was confirmed fluoroscopically, measured, overdrilled, and screws were placed. This held the posterior facet well reduced. I then placed a Steinmann pin into the posterior aspect calcaneus to lever this fragment out of varus. Once this was achieved, guidewires for 4.0 mm cannulated screws were placed from the tuberosity into the fracture fragments involving the posterior facet. These were confirmed fluoroscopically. Again, these were measured, drilled, and 4.0 mm cannulated screws were placed. I then placed a guidewire from the posterior tuberosity, longitudinally to the anterior process of the calcaneus. This was confirmed fluoroscopically, measured, drilled, and a 6.5 mm cannulated screw was placed. At this point, all provisional fixation was removed and final fluoroscopic images were obtained. I directly visualized the posterior facet of the calcaneus, and confirmed that no hardware crossed into the joint. The wounds were then copiously irrigated and meticulously closed in layers utilizing 3-0 Monocryl and skin leticia at the sinus tarsi and 3-0 Prolene at the heel. A sterile dressing was then applied followed by a splint with the ankle in a neutral position. The patient was then awakened from anesthesia and transferred to the recovery room in stable condition. There were no complications. All needle and sponge counts were correct at the end of the case. ATTESTATION: I attest I was present and scrubbed and performed the critical portions of the procedure myself. POSTOPERATIVE PLAN: The plan is for [id number] in a splint. Follow-up in 1 week for a wound check.
[2018-06-20 16:14] VITALS: BP 115/70
--- NOTE | 2018-06-21 07:33 | RAD ---
INDICATION: Calcaneus ORIF , calcaneal fracture, trauma COMPARISONS: June 04, 2018 TECHNIQUE: Fluoroscopy was provided for a surgical procedure. Total fluoroscopy time is: 50.9 seconds FINDINGS: Spot images demonstrate internal fixation of the calcaneus. IMPRESSION: FLUOROSCOPY WAS PROVIDED FOR A SURGICAL PROCEDURE CPT II Codes: G9500
[2018-06-22] MEDS ORDERED: Vancomycin Trough Check NOTE FOLLOW UP ONE (12:00)
--- NOTE | 2018-06-24 23:45 | DS ---
DISCHARGE SUMMARY: DATE OF ADMISSION: 06/18/18 DATE OF DISCHARGE: 06/20/18 PROVIDER: Yahir Ventura MD * (DICTATED BY JIA BULLARD) ADMITTING DIAGNOSIS: Right calcaneus fracture with overlying cellulitis. DISCHARGE DIAGNOSIS: Right calcaneus fracture, status post open reduction internal fixation with resolved cellulitis. HISTORY OF PRESENT ILLNESS: Mr. Anthony is a 43-year-old male who has been followed by Dr. Ventura for a right calcaneus fracture secondary to a fall off of a ladder. This was initially to be treated operatively on 06/13/18. However , the patient has significant swelling overlying the fracture site with some early cellulitic changes. He refused admission at that time and was placed on oral antibiotics. He had failed the course of oral antibiotics and on repeat skin evaluation on 06/18/18, was found to have worsening redness and swelling. He was then admitted to the [facility] for IV antibiotics. HOSPITAL COURSE: On 06/18/18, the patient was admitted to Short Stay Surgical Unit and started on vancomycin. He had strict elevation on this extremity to decrease the swelling as well. The patient's pain was controlled with oral pain medication this time. He was afebrile. On day 2 of admission, he continued on the vancomycin, the redness and swelling continue to improve. His pain also decreased somewhat as well. He was compliant with nonweightbearing. On day 3, the patient was taken to the operating room and underwent open reduction internal fixation of the right calcaneus. He was then splinted after surgery. He recovered in the post anesthesia care unit, was found stable for discharge home at that time. DISCHARGE CONDITION: Stable. DISCHARGE DISPOSITION: Home. DISCHARGE MEDICATIONS: 1. The patient will use oxycodone 5 mg 1 tab p.o. q. 4 to 6 hours p.r.n. pain. 2. He will have Keflex 500 mg p.o. 4 times a day for 7 days. 3. Aspirin 325 mg daily for DVT prophylaxis. 4. Ibuprofen 800 mg p.o. q. 8 hours p.r.n. 5. Bactrim DS 1 tab p.o. b.i.d. 6. The patient will resume his home medication of Claritin 10 mg p.o. at bedtime. DISCHARGE INSTRUCTIONS: The patient will be nonweightbearing with the right lower extremity with the use of crutches. He was counseled again on smoking cessation and its effect on bone healing. He will keep his splint clean, dry and intact until followup. He is understanding to call the office with any problems or concerns. He will otherwise follow up in the office in 10 to [address] Ventura. JIA BULLARD [id number]/[facility] #: [id number] ALEIDA
== END 2018-06-20 16:15 | disposition home or self-care (01) | DRG 314 ==
LOC: SSU 09:23
PROVIDERS: ADMIT Orthopaedic Surgery; ATTEND Orthopaedic Surgery
PROC: 0QSL04Z Reposition Right Tarsal with Internal Fixation Device, Open Approach (ICD-10-PCS; principal; 2018-06-20 11:15)
DX: S92.001A Unspecified fracture of right calcaneus, initial encounter for closed fracture (principal); L03.115 Cellulitis of right lower limb; J30.2 Other seasonal allergic rhinitis; F17.210 Nicotine dependence, cigarettes, uncomplicated; K59.00 Constipation, unspecified; W17.89XA Other fall from one level to another, initial encounter; Y92.9 Unspecified place or not applicable; Z83.3 Family history of diabetes mellitus; Z79.82 Long term (current) use of aspirin; Z23 Encounter for immunization
CPT/HCPCS: 36415; 76001; 80048; 80202; 82565; 84520; 85025; 85610; 85652; 85730; 86140; 90686; A9270-GY; J0171; J1100; J1644; J1885; J2250; J2270; J2704; J2795; J3010; J3370

== ENCOUNTER → 2019-07-01 05:37 | Day surgery (SDC) | payer OTHER ==
[~2019-07-01 05:37] MED LIST changes: +Acetaminophen IV 1GM/100ML * 1,000 MG/100 ML VIAL IVPB ONE; +Acetaminophen TAB* 325 MG ONE; +Acetaminophen TAB* 325 MG PO ONE; -Buffered Lidocaine 0.9% SYRIN* 5 ML/SYR SYRINGE INTRADERM ONE; +Buffered Lidocaine 1% SYRIN* 1 ML/SYRINGE INTRADERM ONE; +Bupivacaine 0.25% SDV PF* 10 ML VIAL INJ ONE; -Bupivacaine 0.25% SDV* 30 ML ONE; +Bupivacaine 0.5%* 50 ML MDV VIAL ONE; -Dexamethasone IV* 4 MG/ML 1 ML (4 MG) IV SLOW PU ONE; +Dexmedetomidine* 200 MCG/2 ML 2 ML VIAL ONE; +DiMENhydriNATE IV* 50 MG/ML VIAL IV PUSH PRN; -Famotidine IV* 10 MG/ML 2 ML (20 mg) IV ONE; +Gabapentin CAP(*) 300 MG ONE; +Gabapentin CAP(*) 300 MG PO ONE; +HYDROmorphone INJ1* 1 MG/ML SYRINGE IV PRN; +Ketorolac INJ* 30 MG/ML 1 ML VIAL ONE; +Lactated Ringers 1000 ML Bag* 1,000 ML IV SCH; +Levalbuterol 0.63MG/3ML NEB* UNIT OF USE INH PRN; +Lidocaine 2% PF * 5 ML VIAL ONE; +Midazolam* 1 MG/ML 2 ML VIAL (2 MG) ONE; +Naloxone* 0.4 MG/ML 1 ML VIAL IV PRN; +Ondansetron INJ* 2 MG/ML VIAL IV PRN; +ROPIVACAINE 5 MG/ML 30 ML BTL (0.5%) ONE; +Ropivacaine (OR use only) 2 MG/ML 10 ML ONE; +ceFAZolin 2 GM PREMIX in ORs 2 GM/50 ML BAG ONE; -ceFAZolin 2 GM in NS PREMIX(*) 2 GM/100 ML BAG IVPB ONE; +diPHENhydraMINE IV* 50 MG/ML 1 ml VIAL (BENADRYL) IV PRN; +diPHENhydraMINE IV* 50 MG/ML 1 ml VIAL (BENADRYL) ONE; +fentaNYL* 50 MCG/ML 2 ML VIAL (100 MCG VIAL) IV PRN; +fentaNYL* 50 MCG/ML 2 ML VIAL (100 MCG VIAL) ONE; +oxyCODONE TAB* 5 MG TAB PO PRN
--- NOTE | 2019-07-01 12:09 | OP ---
Operative Report - Blank - Operative Report Date of Operation: 07/01/19 Note: PATIENT: Matt Anthony DATE OF : 1975 DATE OF SURGERY: 07/01/2019 SURGEON: Yahir Ventura MD VAMP MAKER: JIA Carmichael, whos assistance was necessary for positioning, retraction, help with instrumentation, and closure. ANESTHESIOLOGIST: PREOPERATIVE DIAGNOSIS: Right ankle osteochondral lesion of the talus. Right ankle anterior impingement with distal tibia osteophytes. Right foot painful retained hardware and right subtalar joint post-traumatic arthritis POSTOPERATIVE DIAGNOSIS: Right ankle osteochondral lesion of the talus and tibia. Right ankle anterior impingement with distal tibia osteophytes. Right foot painful retained hardware and right subtalar joint post-traumatic arthritis OPERATION: 1. Right ankle arthroscopy with extensive debridement. 2. Right ankle curettage and microfracture of talar and tibial osteochondral lesions. 3. Right ankle excision of distal tibial osteophytes/saucerization. 4. Right foot removal of deep implants 5. Right subtalar arthrodesis with tibial bone graft ANESTHESIA: Spinal + regional nerve block IMPLANTS: Arthrex 6.7mm cannulated screws TOURNIQUET TIME: 41 minutes, then a 33 minute tourniquet break, then 106 minutes with a well-padded thigh tourniquet at 250mmHg SPECIMENS: none ESTIMATED BLOOD LOSS: minimal COMPLICATIONS: none STATUS: Stable from the operating room to the recovery room and then home. INDICATIONS FOR PROCEDURE: Matt has pain from his ankle, as well as his subtalar joint s/p a calcaneus fracture ORIF. Both operative and non operative treatment alternatives were reviewed. Further, the nature and risks of surgery were reviewed in careful detail, in the office as well as the pre-operative holding area. Our discussions regarding the risks of surgery included, but were not limited to, infection, wound problems, nerve injury, neuroma, RSD, persistent symptoms, blood clot, malunion, nonunion, fracture, need for further surgery, failure of the surgery, and even the remote chance of catastrophic complication. DESCRIPTION OF PROCEDURE: The patient was seen in the preoperative holding unit and informed written consent was obtained. The appropriate extremity was marked. The patient was then brought to the operating room and carefully positioned on the operating room table. Anesthesia was induced. All bony prominences were padded with great care. A well-padded thigh tourniquet was placed. A chlorhexidine based pre- scrub was performed followed by a chloraprep prep and drape in standard sterile fashion. A surgical safety pause was then conducted in which we confirmed the appropriate patient, extremity, planned procedure, availability of equipment, indication and administration of prophylactic antibiotics, and DVT prophylaxis in the form of a compression boot on the non-surgical extremity. I began with an Esmarch exsanguination of the limb and inflated the tourniquet. The leg was positioned in the noninvasive ankle arthroscopy leg benito setup. I began by establishing the anteromedial portal. I utilized a spinal needle for this. Great care was taken to protect the superficial neurovascular structures. Under direct visualization, I then established an anterolateral portal. Great care was taken to protect the superficial peroneal nerve. I utilized the full radius shaver to remove a considerable amount of synovitis from the ankle joint. This was carefully removed to give a nice view of the ankle joint. There was an osteochondral lesion of the talus at the medial talar dome. There was also a kissing lesion at the corresponding tibial plafond. At this point, I utilized a ringed curette to remove loose debris from within the osteochondral lesion. This was curetted back to a stable rim around the perimeter of lesion. The calcified cartilage layer was then removed. I then utilized the microfracture awl to microfracture the lesion, as well as the tibial plafond. I then turned my attention to the anterior impingement of the ankle joint. The anterior aspect of the distal tibia was exposed using the shaver. Ahis revealed a protruding osteophyte at the anterior aspect of the distal tibia. A 4 mm arthroscopic karan was utilized to karan down the osteophyte perform a distal tibia saucerization. I then again utilized the full radius shaver to remove all additional debris from the ankle joint. The tourniquet was deflated. I removed the arthroscopic equipment and closed the portals utilizing 3-0 nylon suture. I then utilized fluoroscopy to locate the screws that were placed from the heel , and these were removed. I then performed an Esmarch exsanguination of the limb and reinflated the tourniquet. I then utilized his prior longitudinal sinus Tarsi incision laterally at the hindfoot. I carefully dissected down to the joint, making sure to protect the peroneal tendons. The remaining screws in the calcaneus were then removed in their entirety. I then used laminar spreaders to distract the subtalar joint while I worked. Any remaining cartilage was removed. Osteophytes were excised. I then prepared the subtalar joint surfaces for fusion. This was performed with a karan , small drill, and osteotomes. The joint was then thoroughly irrigated to remove any remaining debris. I then packed demineralized bone matrix into the posterior aspect of the joint. I then turned my attention to the lateral tibial plateau. An incision was made over Gerdy's tubercle and I carefully dissected down to the lateral aspect of the proximal tibia. I then windowed the cortex of the tibia and used a curette to extract cancellous bone graft. This bone graft was then packed into the subtalar joint fusion site. I then manually reduced the subtalar joint and placed guide pins for cannulated screws. A depth gauge was used to measure length, and the pins were over drilled. I then used three 6.7 mm cannulated screws to provide fixation. These had excellent purchase and compression. Fluoroscopy was used throughout the case to assist in reduction and placement of the hardware. At the end of the case. Final fluoroscopic images were obtained. At this point, a sterile dressing was applied and the ankle was splinted in a neutral position. The patient was then awakened from anesthesia and transferred to the recovery room in stable condition. There were no complications. All needle and sponge counts were correct at the end of the case. ATTESTATION: I attest I was present and scrubbed and performed the critical portions of the procedure myself. POSTOPERATIVE PLAN: The plan is to remain nonweightbearing for an anticipated duration of 2 months. Follow up will be in two weeks for likely suture removal, Steri-Strip application and transition into a short leg cast.
[2019-07-01 13:43] VITALS: BP 109/62
== END | disposition home or self-care (01) ==
LOC: OR 05:37
PROVIDERS: ATTEND Orthopaedic Surgery
DX: M19.171 Post-traumatic osteoarthritis, right ankle and foot (principal); T84.84XA Pain due to internal orthopedic prosthetic devices, implants and grafts, initial encounter; Y83.1 Surgical operation with implant of artificial internal device as the cause of abnormal reaction of the patient, or of later complication, without mention of misadventure at the time of the procedure; M93.271 Osteochondritis dissecans, right ankle and joints of right foot; M25.771 Osteophyte, right ankle; F17.210 Nicotine dependence, cigarettes, uncomplicated; G89.29 Other chronic pain; Z79.891 Long term (current) use of opiate analgesic; G89.18 Other acute postprocedural pain
CPT/HCPCS: 76000; 88300; A9270-GY; C1713; C1776; C9359; J0690; J1100; J1200; J1885; J2250; J2795; J3010; J3490